=== PATIENT | female | born 1985 | race Caucasian/White ===

== ENCOUNTER 2016-11-04 05:09 | Emergency (ER) | payer BC ==
[~2016-11-04] VITALS: Ht 170.2 cm; Wt 108.7 kg
[~2016-11-04 05:09] MED LIST: AZITHROMYCIN250 MG1 PO; BUSPAR15 MG PO; CIPRODEX OTIC7.5 ML BOTH EARS; DEPRIZINE15 MG/1 ML PO; FLEXERIL10 MG PO; GUAIFENESIN WI120 ML PO; HYCODAN SYRUP480 ML PO; KEFLEX500 MG PO; LISINOPRIL10 MG PO; LORTAB 5-325 M1 EACH PO; MOTRIN IB200 MG PO; MOTRIN600 MG PO; NAPROSYN500 MG PO; NO HOME MEDS; NORCO 7.5/321 TABLET PO; PREDNISONE20 MG PO; RANITIDINE HCL300 M1 PO; TOBREX5 ML RIGHT EYE; TRILEPTAL300 MG PO; TYLENOL REGULA325 MG PO; ULTRAM50 MG PO; VENTOLIN HFA18 GM IH; XANAX0.25 MG; ZITHROMAX Z-PA250 MG PO; ZOLOFT100 MG PO; ZYRTEC10 M3 PO
[2016-11-04] MEDS ORDERED: TRAMADOL HCL50 MG PO (06:26)
[2016-11-04 07:35] VITALS: BP 124/87
== END 2016-11-04 07:36 | disposition home or self-care (01) ==
LOC: EME 05:09
DX: S00.83XA Contusion of other part of head, initial encounter (principal); S60.221A Contusion of right hand, initial encounter; S00.81XA Abrasion of other part of head, initial encounter; Y09 Assault by unspecified means; R25.2 Cramp and spasm
CPT/HCPCS: 70450; 70486; 73130; 99281; 99283

== ENCOUNTER 2016-12-04 15:06 | Emergency (ER) | payer BC ==
[~2016-12-04] VITALS: Ht 170.2 cm; Wt 106.4 kg
[~2016-12-04 15:06] MED LIST changes: +TRAMADOL HCL50 MG PO
[2016-12-04 17:05] VITALS: BP 141/97
== END 2016-12-04 17:05 | disposition home or self-care (01) ==
LOC: EME 15:06
DX: S93.402A Sprain of unspecified ligament of left ankle, initial encounter (principal); X50.0XXA Overexertion from strenuous movement or load, initial encounter
CPT/HCPCS: 73610; 99281; 99284

== ENCOUNTER 2017-01-17 19:36 | Emergency (ER) | payer BC, OTHER ==
[~2017-01-17] VITALS: Ht 170.2 cm; Wt 102.2 kg
[2017-01-18] MEDS ORDERED: PERCOCET 5/31 TABLET PO (01:47)
[2017-01-18 02:48] VITALS: BP 117/73
== END 2017-01-18 02:47 | disposition home or self-care (01) ==
LOC: EME 19:36
PROC: 2W3SX1Z Immobilization of Right Foot using Splint (ICD-10-PCS; principal; 2017-01-17)
DX: S92.211A Displaced fracture of cuboid bone of right foot, initial encounter for closed fracture (principal); S71.112A Laceration without foreign body, left thigh, initial encounter; W16.42XA Fall into unspecified water causing other injury, initial encounter; M54.5 Low back pain; I10 Essential (primary) hypertension; J45.909 Unspecified asthma, uncomplicated; K21.9 Gastro-esophageal reflux disease without esophagitis; Z87.891 Personal history of nicotine dependence
CPT/HCPCS: 72040; 72070; 72100; 72220; 73610; 73630; 73700; 99281; 99284

== ENCOUNTER 2017-05-24 17:17 | Inpatient (IN) | payer BC, OTHER ==
[~2017-05-24] VITALS: Ht 170.2 cm; Wt 90.1 kg
[~2017-05-24 17:17] MED LIST changes: +PERCOCET 5/31 TABLET PO
[2017-05-24 17:51] LABS: EOSINOPHIL (%) 0.5 % (0-5); INSTRUMENT ABS NEUTROPHIL CT 2.3 K/uL; LYMPHOCYTE COUNT 1.8 K/uL (1.0-2.8); MCH 30.6 PG (29.0-34.0); MCHC 33.7 G/DL (30.0-36.0); MCV 90.7 FL (83-99); MEAN PLAT.VOLUME 9.7 uM^3 (9.5-12.4); MONOCYTE (%) 3.5 % (3-12); MONOCYTE COUNT 0.2 K/uL (0-0.8); NEUTROPHIL (%) 53.2 % (45-76); NEUTROPHIL COUNT 2.3 K/uL (1.8-6.4); PLATELET COUNT 286 K/uL (156-360); RBC DIS.WIDTH-CV 13.1 % (11.8-14.6); RBC DIS.WIDTH-SD 43.7 % (39-53); RED BLOOD COUNT 3.86 M/uL (3.80-5.20); WHITE BLOOD COUNT 4.3 K/uL (4.1-10.2)
[2017-05-24 18:01] LABS: CHLORIDE 110 mEq/L (99-109); POTASSIUM 3.6 mEq/L (3.7-5.4); SODIUM 145 mEq/L (136-147)
[2017-05-24 18:04] LABS: GLUCOSE 95 mg/dL (70-99)
[2017-05-24 18:05] LABS: ANION GAP 10 MEQ/L (2-14); TOTAL BILIRUBIN 0.3 mg/dL (0.0-1.0)
[2017-05-24 18:06] LABS: SERUM ETHYL ALCOHOL 104 mg/dL
[2017-05-24 18:07] LABS: GFR ESTIMATE (CALCULATED) > 59 mL/min/
[2017-05-24 18:08] LABS: ALKALINE PHOSPHATASE 59 IU/L (3-129)
[2017-05-24 18:09] LABS: DIRECT BILIRUBIN 0.1 mg/dL (0.0-0.3); UREA NITROGEN (BUN) 6 mg/dL (9-23)
[2017-05-24 18:11] LABS: SALICYLATE < 5.0 MG/DL (15-30)
[2017-05-24 18:18] LABS: QUANTITATIVE HCG < 4.0 MIU/ML
[2017-05-24 19:21] LABS: ADD MIUA? NO; BILIRUBIN NEGATIVE; BLOOD NEGATIVE; COLOR COLORLESS ((YELLOW)); GLUCOSE (STRIP) NEGATIVE; KETONES NEGATIVE; LEUKOCYTES NEGATIVE; NITRITE NEGATIVE; PROTEIN (STRIP) NEGATIVE; SPECIFIC GRAVITY 1.002 (1.000-1.030); UROBILINOGEN 0.2 MG/DL (0.2-1.0)
[2017-05-24 19:29] LABS: AMPHETAMINE PRESUMPTIVE POSITIVE (500 ng/mL); BARBITURATES NEGATIVE (200 ng/mL); BENZODIAZEPINES PRESUMPTIVE POSITIVE (150 ng/mL); COCAINE PRESUMPTIVE POSITIVE (150 ng/mL); INTERNAL CONTROLS VALID? YES; METHADONE NEGATIVE (200 ng/mL); METHAMPHETAMINE NEGATIVE (500 ng/mL); OPIATES (MORPHINE) NEGATIVE (100 ng/mL); OXYCODONE NEGATIVE (100 ng/mL); PHENCYCLIDINE NEGATIVE (25 ng/mL); PROPOXYPHENE NEGATIVE (300 ng/mL); THC CANNABINOIDS PRESUMPTIVE POSITIVE (50 ng/mL); TRICYCLIC ANTIDEPRESSANTS PRESUMPTIVE POSITIVE (300 ng/mL)
[2017-05-24 19:30] LABS: ADD MEDTOX COMMENT Y
[2017-05-24 19:52] LABS: BASE EXCESS 3.4 mEq/L (-3 to +3); BICARBONATE 29.1 mEq/L (22-26); CARBOXY HGB 1.4 % (0-5); COMMENTS - BLOOD GASES A+C+; FI02 21 %; METHEMOGLOBIN 0.9 % (0-1.5); PCO2 48 mm Hg (35-45); PO2 144 mm Hg (80-100); SITE RR; pH 7.39 (7.35-7.45)
[2017-05-24 20:05] LABS: BENZODIAZEPINES, URINE SCREEN POSITIVE (200 ng/mL)
[2017-05-24 23:57] LABS: BASOPHIL COUNT 0.1 K/uL (0-0.1); EOSINOPHIL (%) 0.6 % (0-5); EOSINOPHIL COUNT 0.1 K/uL (0-0.3); HEMATOCRIT 35.7 % (36.0-46.0); IMMATURE GRANULOCYTE (%) 0.2 % (0.0-0.7); INSTRUMENT ABS NEUTROPHIL CT 6.6 K/uL; LYMPHOCYTE COUNT 1.8 K/uL (1.0-2.8); MCH 30.2 PG (29.0-34.0); MCHC 33.3 G/DL (30.0-36.0); MCV 90.6 FL (83-99); MEAN PLAT.VOLUME 9.6 uM^3 (9.5-12.4); MONOCYTE (%) 3.5 % (3-12); MONOCYTE COUNT 0.3 K/uL (0-0.8); NEUTROPHIL (%) 74.5 % (45-76); NEUTROPHIL COUNT 6.6 K/uL (1.8-6.4); PLATELET COUNT 287 K/uL (156-360); RBC DIS.WIDTH-CV 13.1 % (11.8-14.6); RBC DIS.WIDTH-SD 43.6 % (39-53); RED BLOOD COUNT 3.94 M/uL (3.80-5.20); WHITE BLOOD COUNT 8.8 K/uL (4.1-10.2)
[2017-05-25] VITALS (19 sets, daily range): BP systolic 85–134; BP diastolic 54–84
[2017-05-25 00:07] LABS: CHLORIDE 113 mEq/L (99-109); POTASSIUM 3.7 mEq/L (3.7-5.4); SODIUM 148 mEq/L (136-147)
[2017-05-25 00:09] LABS: GLUCOSE 86 mg/dL (70-99)
[2017-05-25 00:10] LABS: ANION GAP 9 MEQ/L (2-14)
[2017-05-25 00:11] LABS: TOTAL BILIRUBIN 0.3 mg/dL (0.0-1.0)
[2017-05-25 00:13] LABS: ALKALINE PHOSPHATASE 55 IU/L (3-129); GFR ESTIMATE (CALCULATED) > 59 mL/min/
[2017-05-25 00:14] LABS: UREA NITROGEN (BUN) 6 mg/dL (9-23)
[2017-05-25 00:17] LABS: TROP-I INTERPRETATION NEGATIVE; TROPONIN-I < 0.01 ng/mL (0.0-0.30)
[2017-05-25 00:39] LABS: BASE EXCESS 4.4 mEq/L (-3 to +3); BICARBONATE 28.4 mEq/L (22-26); CARBOXY HGB 1.6 % (0-5); COMMENTS - BLOOD GASES A+C+; DEVICE NRBM; FI02 100 %; METHEMOGLOBIN 1.5 % (0-1.5); O2 FLOW 15 L/MIN; PCO2 39 mm Hg (35-45); PO2 59 mm Hg (80-100); SITE RR; pH 7.47 (7.35-7.45)
[2017-05-25 00:40] LABS: TOTAL RESP RATE 20 resp/min
[2017-05-25 02:26] LABS: METH RESISTANT S AUREUS PCR NEGATIVE (NEGATIVE)
[2017-05-25 02:28] LABS: PROBE CHECK PASS; SPECIMEN PROCESSING CONTROL PASS
[2017-05-25 05:29] LABS: HEMATOCRIT 33.3 % (36.0-46.0); MCH 30.1 PG (29.0-34.0); MCHC 32.7 G/DL (30.0-36.0); MEAN PLAT.VOLUME 9.5 uM^3 (9.5-12.4); PLATELET COUNT 275 K/uL (156-360); RBC DIS.WIDTH-CV 13.2 % (11.8-14.6); RBC DIS.WIDTH-SD 44.7 % (39-53); RED BLOOD COUNT 3.62 M/uL (3.80-5.20); WHITE BLOOD COUNT 11.4 K/uL (4.1-10.2)
[2017-05-25 06:03] LABS: ALKALINE PHOSPHATASE 52 IU/L (3-129); ANION GAP 7 MEQ/L (2-14); CHLORIDE 115 MEQ/L (99-109); GFR ESTIMATE (CALCULATED) > 59 mL/min/; GLUCOSE 80 mg/dL (70-99); POTASSIUM 3.6 MEQ/L (3.7-5.4); SAMPLE HEMOLYSIS CHECK 0; SAMPLE ICTERIC CHECK 0; SAMPLE LIPEMIA CHECK 0; SODIUM 148 MEQ/L (136-147); TOTAL BILIRUBIN 0.5 MG/DL (0.0-1.0); UREA NITROGEN (BUN) 6 mg/dL (9-23)
[2017-05-26] VITALS (23 sets, daily range): BP systolic 95–132; BP diastolic 53–72
[2017-05-26 06:06] LABS: ADD MIUA? NO; BILIRUBIN NEGATIVE; BLOOD NEGATIVE; COLOR YELLOW ((YELLOW)); GLUCOSE (STRIP) NEGATIVE; KETONES 5; LEUKOCYTES NEGATIVE; NITRITE NEGATIVE; PROTEIN (STRIP) NEGATIVE; SPECIFIC GRAVITY 1.014 (1.000-1.030); UCUL ADDED? NO; UROBILINOGEN 0.2 MG/DL (0.2-1.0)
[2017-05-26 06:48] LABS: BASOPHIL COUNT 0.1 K/uL (0-0.1); EOSINOPHIL (%) 0.1 % (0-5); HEMATOCRIT 36.6 % (36.0-46.0); IMMATURE GRANULOCYTE (%) 0.4 % (0.0-0.7); IMMATURE GRANULOCYTE COUNT 0.1 K/uL; INSTRUMENT ABS NEUTROPHIL CT 13.7 K/uL; LYMPHOCYTE COUNT 1.3 K/uL (1.0-2.8); MCH 31.3 PG (29.0-34.0); MCHC 33.3 G/DL (30.0-36.0); MCV 93.8 FL (83-99); MEAN PLAT.VOLUME 9.8 uM^3 (9.5-12.4); MONOCYTE (%) 4.1 % (3-12); MONOCYTE COUNT 0.6 K/uL (0-0.8); NEUTROPHIL COUNT 13.7 K/uL (1.8-6.4); PLATELET COUNT 265 K/uL (156-360); RBC DIS.WIDTH-CV 14.1 % (11.8-14.6); RBC DIS.WIDTH-SD 48.2 % (39-53); WHITE BLOOD COUNT 15.8 K/uL (4.1-10.2)
[2017-05-26 07:26] LABS: ANION GAP 8 MEQ/L (2-14); CHLORIDE 108 MEQ/L (99-109); GFR ESTIMATE (CALCULATED) > 59 mL/min/; GLUCOSE 88 mg/dL (70-99); POTASSIUM 3.3 MEQ/L (3.7-5.4); SAMPLE HEMOLYSIS CHECK 0; SAMPLE ICTERIC CHECK 0; SAMPLE LIPEMIA CHECK 0; SODIUM 144 MEQ/L (136-147); UREA NITROGEN (BUN) 10 mg/dL (9-23)
[2017-05-27] VITALS (20 sets, daily range): BP systolic 95–147; BP diastolic 53–94
[2017-05-27 06:56] LABS: BASOPHIL COUNT 0.1 K/uL (0-0.1); EOSINOPHIL (%) 0.2 % (0-5); HEMATOCRIT 33.6 % (36.0-46.0); IMMATURE GRANULOCYTE (%) 0.6 % (0.0-0.7); IMMATURE GRANULOCYTE COUNT 0.1 K/uL; INSTRUMENT ABS NEUTROPHIL CT 13.3 K/uL; LYMPHOCYTE COUNT 1.3 K/uL (1.0-2.8); MCH 31.1 PG (29.0-34.0); MCV 94.1 FL (83-99); MEAN PLAT.VOLUME 9.8 uM^3 (9.5-12.4); MONOCYTE (%) 4.6 % (3-12); MONOCYTE COUNT 0.7 K/uL (0-0.8); NEUTROPHIL (%) 85.6 % (45-76); NEUTROPHIL COUNT 13.3 K/uL (1.8-6.4); PLATELET COUNT 216 K/uL (156-360); RBC DIS.WIDTH-CV 13.8 % (11.8-14.6); RBC DIS.WIDTH-SD 47.7 % (39-53); RED BLOOD COUNT 3.57 M/uL (3.80-5.20); WHITE BLOOD COUNT 15.6 K/uL (4.1-10.2)
[2017-05-27] MEDS ORDERED: MINIPRESS1 MG PO (13:30)
[2017-05-27] MEDS ORDERED: VYVANSE30 MG PO (13:30)
[2017-05-27] MEDS ORDERED: XANAX XR2 MG PO (13:30)
[2017-05-27] MEDS ORDERED: SEROQUEL100 MG PO (13:30)
[2017-05-27] MEDS ORDERED: ZOLOFT100 MG PO (13:30)
[2017-05-27] MEDS ORDERED: LAMICTAL100 MG PO (13:31)
[2017-05-28 00:07] VITALS: BP 152/64
[2017-05-28 06:30] LABS: BASOPHIL COUNT 0.1 K/uL (0-0.1); EOSINOPHIL (%) 1.1 % (0-5); EOSINOPHIL COUNT 0.1 K/uL (0-0.3); HEMATOCRIT 30.9 % (36.0-46.0); IMMATURE GRANULOCYTE (%) 0.5 % (0.0-0.7); IMMATURE GRANULOCYTE COUNT 0.1 K/uL; LYMPHOCYTE COUNT 1.4 K/uL (1.0-2.8); MCH 29.8 PG (29.0-34.0); MCHC 32.7 G/DL (30.0-36.0); MCV 91.2 FL (83-99); MEAN PLAT.VOLUME 9.9 uM^3 (9.5-12.4); MONOCYTE COUNT 0.7 K/uL (0-0.8); NEUTROPHIL (%) 79.8 % (45-76); PLATELET COUNT 207 K/uL (156-360); RBC DIS.WIDTH-CV 13.1 % (11.8-14.6); RED BLOOD COUNT 3.39 M/uL (3.80-5.20); WHITE BLOOD COUNT 11.2 K/uL (4.1-10.2)
[2017-05-28 07:02] LABS: ALKALINE PHOSPHATASE 79 IU/L (3-129); ANION GAP 7 MEQ/L (2-14); CHLORIDE 110 MEQ/L (99-109); GFR ESTIMATE (CALCULATED) > 59 mL/min/; GLUCOSE 106 mg/dL (70-99); POTASSIUM 3.1 MEQ/L (3.7-5.4); SAMPLE HEMOLYSIS CHECK 0; SAMPLE ICTERIC CHECK 0; SAMPLE LIPEMIA CHECK 0; SODIUM 143 MEQ/L (136-147); TOTAL BILIRUBIN 0.6 MG/DL (0.0-1.0); UREA NITROGEN (BUN) 5 mg/dL (9-23)
[2017-05-28 07:06] VITALS: BP 100/53
[2017-05-28 07:56] LABS: MAGNESIUM 1.8 mg/dl (1.3-2.7)
[2017-05-28 09:37] LABS: IMM.RETIC FRACTION 6.6 % (3-19); RETIC HGB EQUIVALENT 27.4 (28-36); RETICULOCYTE COUNT 0.9 % (0.5-1.8)
[2017-05-28 09:55] LABS: IRON 25 MCG/DL (35-150)
[2017-05-28 10:22] LABS: FERRITIN 267 NG/ML (10-291)
[2017-05-28 15:16] VITALS: BP 127/70
[2017-05-29 00:05] VITALS: BP 130/70
[2017-05-29 06:25] LABS: EOSINOPHIL (%) 3.7 % (0-5); EOSINOPHIL COUNT 0.2 K/uL (0-0.3); IMMATURE GRANULOCYTE (%) 0.3 % (0.0-0.7); INSTRUMENT ABS NEUTROPHIL CT 3.9 K/uL; LYMPHOCYTE COUNT 1.5 K/uL (1.0-2.8); MCH 29.7 PG (29.0-34.0); MCHC 32.6 G/DL (30.0-36.0); MCV 91.2 FL (83-99); MEAN PLAT.VOLUME 10.1 uM^3 (9.5-12.4); MONOCYTE (%) 9.1 % (3-12); MONOCYTE COUNT 0.6 K/uL (0-0.8); NEUTROPHIL (%) 62.3 % (45-76); NEUTROPHIL COUNT 3.9 K/uL (1.8-6.4); PLATELET COUNT 246 K/uL (156-360); RBC DIS.WIDTH-CV 13.1 % (11.8-14.6); RBC DIS.WIDTH-SD 43.6 % (39-53); WHITE BLOOD COUNT 6.3 K/uL (4.1-10.2)
[2017-05-29 07:03] LABS: ANION GAP 11 MEQ/L (2-14); CHLORIDE 106 MEQ/L (99-109); GFR ESTIMATE (CALCULATED) > 59 mL/min/; GLUCOSE 89 mg/dL (70-99); POTASSIUM 3.3 MEQ/L (3.7-5.4); SAMPLE HEMOLYSIS CHECK 0; SAMPLE ICTERIC CHECK 0; SAMPLE LIPEMIA CHECK 0; SODIUM 143 MEQ/L (136-147); UREA NITROGEN (BUN) 5 mg/dL (9-23)
[2017-05-29 07:19] VITALS: BP 115/65
[2017-05-29] MEDS ORDERED: DUONEB 2.5-0.5 M3 ML AEROSOL (08:15)
[2017-05-29] MEDS ORDERED: FERROUS SULFAT325 MG PO (08:15)
[2017-05-29] MEDS ORDERED: CYANOCOBALAM1000 MCG PO (08:16)
[2017-05-29] MEDS ORDERED: ADVAIR HFA120 INHALA IH (08:16)
[2017-05-29] MEDS ORDERED: AUGMENTIN875 MG PO (08:17)
[2017-05-29] MEDS ORDERED: PREDNISONE10 MG PO (08:18)
[2017-05-29 15:08] VITALS: BP 111/63
== END 2017-05-29 16:48 | DRG 917 ==
LOC: EME 17:17 → 4WEST 23:07 → EDOF 23:07 → ENRESERV 23:09 → 4EAST 23:55 → ENRESERV 05-25 00:35 → 4WEST 05-25 00:36 → ENRESERV 05-27 16:52 → 4WEST 05-27 16:53 → ENRESERV 05-27 17:06 → 5SOUTH 05-27 21:20
PROVIDERS: Emergency Medicine; Hospitalist; Internal Medicine; Surgery
DX: T42.4X2A Poisoning by benzodiazepines, intentional self-harm, initial encounter (principal); T43.592A Poisoning by other antipsychotics and neuroleptics, intentional self-harm, initial encounter; T40.5X2A Poisoning by cocaine, intentional self-harm, initial encounter; T51.0X2A Toxic effect of ethanol, intentional self-harm, initial encounter; J96.01 Acute respiratory failure with hypoxia; J69.0 Pneumonitis due to inhalation of food and vomit; R47.81 Slurred speech; E87.6 Hypokalemia; F31.9 Bipolar disorder, unspecified; I10 Essential (primary) hypertension; K21.9 Gastro-esophageal reflux disease without esophagitis; J45.909 Unspecified asthma, uncomplicated; F41.9 Anxiety disorder, unspecified; G89.29 Other chronic pain; M17.9 Osteoarthritis of knee, unspecified; S83.249A Other tear of medial meniscus, current injury, unspecified knee, initial encounter; X58.XXXA Exposure to other specified factors, initial encounter; Z87.891 Personal history of nicotine dependence
CPT/HCPCS: 36600; 70450; 71010; 71020; 73560; 80048; 80053; 80076; 81003; 82607; 82728; 82746; 82803; 83540; 83735; 84466; 84484; 84702; 84999; 85025; 85025 91; 85027; 85045; 87040; 87086; 87641; 93005; 94640; 94799; 99281; 99285; G0480; J0295; J1650; J2310; J3480; J7030; J7040; J7042; J7050; J7512; S0028

== ENCOUNTER 2017-05-29 16:17 | Inpatient (IN) | payer BC, OTHER ==
[~2017-05-29] VITALS: Ht 170.2 cm; Wt 90.1 kg
[~2017-05-29 16:17] MED LIST changes: +ADVAIR HFA120 INHALA IH; +AUGMENTIN875 MG PO; +CYANOCOBALAM1000 MCG PO; +DUONEB 2.5-0.5 M3 ML AEROSOL; +FERROUS SULFAT325 MG PO; +LAMICTAL100 MG PO; +MINIPRESS1 MG PO; +PREDNISONE10 MG PO; +SEROQUEL100 MG PO; +VYVANSE30 MG PO; +XANAX XR2 MG PO
[2017-05-29 17:27] VITALS: BP 134/63
[2017-05-30 17:52] VITALS: BP 113/66
[2017-05-30 23:13] VITALS: BP 135/77
[2017-05-31 08:00] VITALS: BP 104/60
[2017-05-31] MEDS ORDERED: AUGMENTIN875 MG PO (09:15)
[2017-05-31] MEDS ORDERED: MINIPRESS2 MG PO (09:15)
[2017-05-31] MEDS ORDERED: ADVAIR HFA120 INHALA IH (09:17)
[2017-05-31] MEDS ORDERED: KETOROLAC TROME10 MG PO (09:17)
[2017-05-31] MEDS ORDERED: SEROQUEL300 MG PO (09:17)
[2017-05-31] MEDS ORDERED: CYANOCOBALAM1000 MCG PO (09:17)
[2017-05-31] MEDS ORDERED: BUSPAR10 MG PO (09:17)
== END 2017-05-31 10:30 | disposition home or self-care (01) | DRG 885 ==
LOC: 1WEST 16:17 → ENRESERV 16:19 → 1WEST 16:56
DX: F31.0 Bipolar disorder, current episode hypomanic (principal); F41.9 Anxiety disorder, unspecified; F43.10 Post-traumatic stress disorder, unspecified; F90.9 Attention-deficit hyperactivity disorder, unspecified type; F14.10 Cocaine abuse, uncomplicated; F12.10 Cannabis abuse, uncomplicated; F10.10 Alcohol abuse, uncomplicated; Y90.5 Blood alcohol level of 100-119 mg/100 ml; G89.29 Other chronic pain; M25.561 Pain in right knee; Z91.5 Personal history of self-harm
CPT/HCPCS: 94640; 94640 76; 97150 GO